=== PATIENT | female | born 1990 | race Caucasian/White ===

== ENCOUNTER 2022-02-01 22:45 | Emergency (ER) | payer MEDICAID, OTHER ==
[~2022-02-01] VITALS: Ht 162.6 cm; Wt 108.9 kg
[2022-02-02 00:13] LABS: Basophils # (auto) 0 10 ^3/uL (0-0.2); Basophils % (auto) 0.5 % (0.0-2.0); Eosinophils # (auto) 0.4 10 ^3/uL (0-0.8); Hematocrit 37.9 % (36.0-46.0); Hemoglobin 12.9 g/dL (12.2-16.2); Lymphocytes # (auto) 3.5 10 ^3/uL (0.4-5.4); Lymphocytes % (auto) 37.2 % (10.0-50.0); Mean Corpuscular Hemoglobin 27.9 pg (28.0-32.0); Monocytes # (auto) 0.6 10 ^3/uL (0-1.3); Monocytes % (auto) 6.3 % (0.0-12.0); Neutrophils # (auto) 4.9 10 ^3/uL (1.6-8.6); Nucleated Red Blood Cells % 0.1 %; Red Blood Cells 4.62 10^6/uL (4.0-5.20); Red Cell Distribution Width 13.5 % (11.8-14.3); White Blood Cell 9.4 10^3/uL (4.4-10.8)
[2022-02-02 00:26] LABS: Albumin 3.2 g/dL (3.4-5.0); BUN/Creatinine Ratio 17.2; Calcium 9.1 mg/dL (8.5-10.1); Potassium 3.6 mmol/L (3.5-5.1)
[2022-02-02 00:28] LABS: Bilirubin, Total 0.2 mg/dL (0.2-1.0); Total Protein 7.1 g/dL (6.4-8.2)
[2022-02-02 02:21] LABS: Urine Bacteria NONE SEEN /hpf (None Seen); Urine Blood Negative /uL (Negative); Urine Mucus FEW (None Seen); Urine Specific Gravity 1.032 (1.001-1.035); Urine WBC 1 /hpf (0 - 5)
[2022-02-02 06:00] VITALS: BP 127/60
== END 2022-02-02 06:29 | disposition home or self-care (01) ==
LOC: ER 22:45
DX: O99.891 Other specified diseases and conditions complicating pregnancy (principal); N83.9 Noninflammatory disorder of ovary, fallopian tube and broad ligament, unspecified; D27.0 Benign neoplasm of right ovary; Z3A.01 Less than 8 weeks gestation of pregnancy
CPT/HCPCS: 36415; 76801; 76817; 80053; 81001; 84702; 85025

== ENCOUNTER 2022-07-01 22:16 | Observation (INO) | payer MEDICAID ==
[~2022-07-01] VITALS: Ht 162.6 cm; Wt 111.1 kg
[2022-07-01] MEDS ORDERED: PREN-96 PO (23:35)
[2022-07-01] MEDS ORDERED: INSUINJ2 SC (23:36)
[2022-07-01] MEDS ORDERED: VITACAP46 OR (23:36)
[2022-07-01] MEDS ORDERED: ASPI-498 OR (23:36)
[2022-07-02] MEDS ORDERED: ASCO500T11 PO (01:13)
== END 2022-07-02 01:26 | disposition home or self-care (01) ==
LOC: LDRP 22:16
PROVIDERS: ADMIT Obstetrics & Gynecology Obstetrics; ATTEND Obstetrics & Gynecology Obstetrics
DX: O26.892 Other specified pregnancy related conditions, second trimester (principal); R10.13 Epigastric pain; R06.02 Shortness of breath; O24.419 Gestational diabetes mellitus in pregnancy, unspecified control; Z3A.25 25 weeks gestation of pregnancy; Z98.891 History of uterine scar from previous surgery; Z79.4 Long term (current) use of insulin; Z79.82 Long term (current) use of aspirin
CPT/HCPCS: 59025; 76805; 81002; 82962; 94760; G0378

== ENCOUNTER 2022-08-30 06:19 | Observation (INO) | payer MEDICAID ==
[~2022-08-30 06:19] MED LIST: ASCO500T11 PO; ASPI-498 OR; INSUINJ2 SC; PREN-96 PO
[2022-08-30] MEDS ORDERED: TERBUTALINE SULFATE 1 MG/ML 1ML VIAL SC ONE (07:45)
== END 2022-08-30 11:20 | disposition home or self-care (01) ==
LOC: LDRP 06:19
PROVIDERS: ADMIT Obstetrics & Gynecology; ATTEND Obstetrics & Gynecology
DX: O98.513 Other viral diseases complicating pregnancy, third trimester (principal); U07.1 COVID-19; O24.419 Gestational diabetes mellitus in pregnancy, unspecified control; O60.03 Preterm labor without delivery, third trimester; O62.9 Abnormality of forces of labor, unspecified; Z3A.34 34 weeks gestation of pregnancy
CPT/HCPCS: 36415; 59025; 81002; 82948; 82962; 87426; 94760; 96372; G0378; J3105

== ENCOUNTER 2022-12-26 09:27 | Emergency (ER) | payer MEDICAID ==
[~2022-12-26] VITALS: Ht 162.6 cm; Wt 109.0 kg
[2022-12-26 10:38] VITALS: BP 136/78
[2022-12-26] MEDS ORDERED: KETOROLAC TROMETH 60MG/2ML VIAL IM ONE (10:45)
[2022-12-26] MEDS ORDERED: METH750T22 PO (12:00)
[2022-12-26] MEDS ORDERED: IBUP800T27 PO (12:00)
== END 2022-12-26 12:06 | disposition home or self-care (01) ==
LOC: EDBD 09:27 → ER 09:27 → EDUNIT# 09:27 → ER 12:06
DX: S16.1XXA Strain of muscle, fascia and tendon at neck level, initial encounter (principal); S39.012A Strain of muscle, fascia and tendon of lower back, initial encounter; W10.8XXA Fall (on) (from) other stairs and steps, initial encounter; Y93.89 Activity, other specified; Y92.89 Other specified places as the place of occurrence of the external cause; Y99.8 Other external cause status
CPT/HCPCS: 72040; 72100; 96372; 99284; J1885